=== PATIENT | female | born 1950 | race African-American/Black ===

== ENCOUNTER 2018-03-12 10:34 | Outpatient (CLI) | payer MEDICARE ==
[2018-03-12 11:23] LABS: ALT (SGPT) 13 U/L (8-55); AST (SGOT) 18 U/L (5-34); Albumin 4.4 g/dL (3.4-4.8); Alkaline Phosphatase 68 U/L (40-150); Anion Gap 13 mmol/L (10-20); BUN (Urea Nitrogen) 9 mg/dL (9.8-20.1); Bilirubin, Total 0.4 mg/dL (0.2-1.2); Calc. Creatinine Clearance 0 mL/min (70-130); Calcium 9.7 mg/dL (7.8-10.44); Carbon Dioxide 27 mmol/L (23-31); Cardiac Risk 3.2 (Less than 4.5); Chloride 106 mmol/L (98-107); Cholesterol 211 mg/dl (< 200 Desired); Estimated GFR-MDRD 82; Globulin 3.5 g/dL (2.4-3.5); Glucose 107 mg/dL (80-115); HDL Cholesterol 65 mg/dL (>60 Neg Risk); LDL Cholesterol, Calculated 134 mg/dL; Potassium 4.4 mmol/L (3.5-5.1); Protein, Total 7.9 g/dL (6.0-8.3); Sodium 142 mmol/L (136-145); Triglycerides 58 mg/dL (Less than 150)
[2018-03-12 11:24] LABS: Eosinophils 5 % (0-10); Hemoglobin 13.7 g/dL (12.0-16.0); Lymphocytes 55 % (21-51); MDiff Complete? YES; Mean Corpuscular HGB CONC 31.9 g/dL (32.0-36.0); Mean Corpuscular Hemoglobin 29.7 pg (27.0-31.0); Mean Corpuscular Volume 93.3 fL (78.0-98.0); Mean Platelet Volume 6.4 fL (7.4-10.4); Monocytes 2 % (0-10); Neutrophil 32 % (42-75); Platelet Count 234 thou/uL (130-400); RBC Distribution Width 12.3 % (11.5-14.5); Reactive Lymphocytes 6 % (0-10); Red Blood Cell (RBC) Count 4.61 mill/uL (4.20-5.40); White Blood Cell (WBC) Count 4.9 thou/uL (4.8-10.8)
== END 2018-03-12 10:35 ==
LOC: MADLABBHPM 10:34
PROVIDERS: ATTEND Family Medicine
DX: E78.2 Mixed hyperlipidemia (principal); I10 Essential (primary) hypertension
CPT/HCPCS: 36415; 80053; 80061; 85025

== ENCOUNTER 2019-05-11 23:52 | Emergency (ER) | payer MEDICARE | END 2019-05-12 01:04 | disposition home or self-care (01) | LOC: MADERS 23:52 | DX: I10 Essential (primary) hypertension (principal); E78.00 Pure hypercholesterolemia, unspecified; E78.5 Hyperlipidemia, unspecified; F17.200 Nicotine dependence, unspecified, uncomplicated; Z79.899 Other long term (current) drug therapy | CPT/HCPCS: 99281 ==

== ENCOUNTER 2021-04-08 10:00 | Emergency (ER) | payer MEDICARE ==
[2021-04-08 11:25] LABS: #Basophils 0.1 thou/uL (0.0-0.2); #Eosinphils 0.1 thou/uL (0.0-0.7); #Lymphocytes 1.5 thou/uL (1.20-3.40); #Monocytes 0.5 thou/uL (0.11-0.59); #Neutrophils 5.2 thou/uL (1.40-6.50); %Basophils 1.2 % (0.0-1.0); %Eosinophils 0.8 % (0.0-10.0); %Lymphocytes 20.7 % (21.0-51.0); %Monocytes 6.6 % (0.0-10.0); %Neutrophils 70.7 % (42.0-75.0); Hemoglobin 14.6 g/dL (12.0-16.0); Mean Corpuscular Hemoglobin 30.6 pg (27.0-31.0); Mean Corpuscular Volume 95.6 fL (78.0-98.0); Mean Platelet Volume 7.9 fL (7.4-10.4); Platelet Count 249 thou/uL (130-400); RBC Distribution Width 13.3 % (11.5-14.5); Red Blood Cell (RBC) Count 4.79 mill/uL (4.20-5.40); White Blood Cell (WBC) Count 7.4 thou/uL (4.8-10.8)
[2021-04-08 11:44] LABS: ALT (SGPT) 12 U/L (8-55); AST (SGOT) 17 U/L (5-34); Albumin 4.4 g/dL (3.4-4.8); Alkaline Phosphatase 66 U/L (40-110); Anion Gap 16 mmol/L (10-20); BUN (Urea Nitrogen) 11 mg/dL (9.8-20.1); Bilirubin, Total 0.6 mg/dL (0.2-1.2); Calc. Creatinine Clearance 0 mL/min (70-130); Calcium 9.9 mg/dL (7.8-10.44); Carbon Dioxide 25 mmol/L (23-31); Chloride 104 mmol/L (98-107); Globulin 3.7 g/dL (2.4-3.5); Glucose 100 mg/dL (80-115); Magnesium 1.7 mg/dL (1.6-2.6); Potassium 4.2 mmol/L (3.5-5.1); Protein, Total 8.1 g/dL (5.8-8.1); Sodium 141 mmol/L (136-145)
[2021-04-08] MEDS ORDERED: Nicotine 7 MG PATCH TOP SCH (17:00)
== END 2021-04-08 15:32 | disposition short-term general hospital (02) ==
LOC: MADERS 10:00
DX: G45.9 Transient cerebral ischemic attack, unspecified (principal); F17.200 Nicotine dependence, unspecified, uncomplicated; E78.5 Hyperlipidemia, unspecified; E78.00 Pure hypercholesterolemia, unspecified; I10 Essential (primary) hypertension; Z79.82 Long term (current) use of aspirin; Z79.899 Other long term (current) drug therapy
CPT/HCPCS: 12011; 36415; 70450; 71045; 72125; 80053; 83735; 83880; 84439; 84443; 84481; 84484; 85025; 93005

== ENCOUNTER 2023-07-08 16:34 | Emergency (ER) | payer MEDICARE ==
[2023-07-08 17:54] LABS: ALT (SGPT) 9 U/L (8-55); AST (SGOT) 15 U/L (5-34); Alkaline Phosphatase 68 U/L (40-110); Anion Gap 12 mmol/L (10-20); BUN (Urea Nitrogen) 15 mg/dL (9.8-20.1); Bilirubin, Total 0.4 mg/dL (0.2-1.2); Calc. Creatinine Clearance 0 mL/min (70-130); Calcium 9.5 mg/dL (7.8-10.44); Carbon Dioxide 26 mmol/L (23-31); Chloride 105 mmol/L (98-107); Estimated GFR 63; Globulin 3.1 g/dL (2.4-3.5); Glucose 99 mg/dL (83-110); Magnesium 1.9 mg/dL (1.6-2.6); Protein, Total 7.1 g/dL (5.8-8.1); Sodium 139 mmol/L (136-145)
[2023-07-08 17:57] LABS: Troponin I Less than 0.010 ng/mL (< 0.028)
[2023-07-08 18:14] LABS: Hematocrit 40.5 % (36.0-47.0); Hemoglobin 13.1 g/dL (12.0-16.0); Mean Corpuscular HGB CONC 32.4 g/dL (32.0-36.0); Mean Corpuscular Hemoglobin 31.5 pg (27.0-31.0); Mean Corpuscular Volume 97.1 fl (78.0-98.0); Platelet Count 241 10x3/uL (130-400); RBC Distribution Width 12.8 % (11.5-14.5); Red Blood Cell (RBC) Count 4.17 mill/uL (4.20-5.40); White Blood Cell (WBC) Count 5.4 10x3/uL (4.8-10.8)
[2023-07-08 18:15] LABS: Band 2 % (5-11); Eosinophils 2 % (0-10); Lymphocytes 21 % (21-51); MDiff Complete? YES; Manual Diff?? YES; Monocytes 2 % (0-10); Neutrophil 46 % (42-75); Platelet Adequacy Comment Appears Adequate; RBC Morph Comment Within Normal Limits; Reactive Lymphocytes 27 % (0-10)
[2023-07-08 18:32] LABS: INR-International Normal Ratio 1.1; Prothrombin Time 14.4 sec (12.0-14.7)
[2023-07-08 18:33] LABS: PTT 27.3 sec (22.9-36.1)
[2023-07-08] MEDS ORDERED: Metoprolol Tartrate 5 MG/5 ML VIAL ONE (18:35)
[2023-07-08] MEDS ORDERED: Furosemide 40 MG/4 ML VIAL ONE (18:35)
[2023-07-08] MEDS ORDERED: Sodium Chloride 0.9% 50 ML ONE (18:35)
[2023-07-08] MEDS ORDERED: Apixaban 5 MG TAB PO SCH (19:00)
== END 2023-07-08 19:50 | disposition home or self-care (01) ==
LOC: MADERS 16:34
DX: I48.92 Unspecified atrial flutter (principal); R60.0 Localized edema; J44.9 Chronic obstructive pulmonary disease, unspecified; I10 Essential (primary) hypertension; F17.210 Nicotine dependence, cigarettes, uncomplicated; E78.00 Pure hypercholesterolemia, unspecified; Z79.82 Long term (current) use of aspirin; Z79.899 Other long term (current) drug therapy; Z79.51 Long term (current) use of inhaled steroids
CPT/HCPCS: 71045; 80053; 83735; 83880; 84484; 85025; 85610; 85730; 93005; 96365; 96375; J1940

== ENCOUNTER 2023-09-28 00:31 | Emergency (ER) | payer MEDICARE ==
[2023-09-28] MEDS ORDERED: methylPREDNISolone Sod Succ/PF 125 MG/2 ML VIAL ONE (00:59)
[2023-09-28 01:17] LABS: #Basophils 0.2 thou/uL (0.0-0.2); #Lymphocytes 1.2 thou/uL (1.20-3.40); #Monocytes 0.7 thou/uL (0.11-0.59); #Neutrophils 8.2 thou/uL (1.40-6.50); %Basophils 1.8 % (0.0-1.0); %Eosinophils 0.2 % (0.0-10.0); %Lymphocytes 11.9 % (21.0-51.0); %Monocytes 6.7 % (0.0-10.0); %Neutrophils 79.3 % (42.0-75.0); Hematocrit 39.8 % (36.0-47.0); Mean Corpuscular HGB CONC 32.6 g/dL (32.0-36.0); Mean Corpuscular Hemoglobin 31.5 pg (27.0-31.0); Mean Corpuscular Volume 96.5 fl (78.0-98.0); Mean Platelet Volume 8.5 fL (7.4-10.4); Platelet Count 195 10x3/uL (130-400); RBC Distribution Width 13.4 % (11.5-14.5); Red Blood Cell (RBC) Count 4.12 mill/uL (4.20-5.40); White Blood Cell (WBC) Count 10.4 10x3/uL (4.8-10.8)
[2023-09-28] MEDS ORDERED: Azithromycin 250 MG TAB ONE (01:34)
[2023-09-28] MEDS ORDERED: cefTRIAXone (ROCEPHIN) 1 GM VIAL ONE (01:34)
[2023-09-28 01:56] LABS: Anion Gap 17 mmol/L (10-20); BUN (Urea Nitrogen) 14 mg/dL (9.8-20.1); Calc. Creatinine Clearance 0 mL/min (70-130); Calcium 8.9 mg/dL (7.8-10.44); Carbon Dioxide 20 mmol/L (23-31); Chloride 109 mmol/L (98-107); Estimated GFR 81; Glucose 109 mg/dL (83-110); Potassium 3.7 mmol/L (3.5-5.1); Sodium 142 mmol/L (136-145)
[2023-09-28 02:00] LABS: Troponin I 0.019 ng/mL (< 0.028)
== END 2023-09-28 03:56 | disposition home or self-care (01) ==
LOC: MADERS 00:31
DX: J44.1 Chronic obstructive pulmonary disease with (acute) exacerbation (principal); I11.0 Hypertensive heart disease with heart failure; I50.9 Heart failure, unspecified; E78.00 Pure hypercholesterolemia, unspecified; F17.200 Nicotine dependence, unspecified, uncomplicated; Z79.899 Other long term (current) drug therapy; Z79.82 Long term (current) use of aspirin; Z79.01 Long term (current) use of anticoagulants
CPT/HCPCS: 71045; 80048; 83605; 84484; 85025; 93005; 96374; 96375; J0696; J2930